=== PATIENT | female | born 1965 | race Caucasian/White ===

== ENCOUNTER 2018-02-19 06:41 | Emergency (ER) | payer SELFPAY ==
--- NOTE | 2018-02-19 07:20 | ED PDOC ---
HPI: Skin/Bite Injury Time Seen by Provider: 02/19/18 07:10 Onset/Duration Of Symptoms: Days (2) Location Of Injury: Right: Arm, Face, Left: Arm Quality Of Symptoms: Itching Severity: Mild Additional Complaint(s): Pt states bitten by bed bugs yestewrday and today on face and arms. Itchy. No fever or draiage Past Medical History - Medical History PMH: No Chronic Diseases - Family History Family History: States: Unknown Family Hx - Home Medications Home Medications: Ambulatory Orders Medication Instructions Recorded Cetirizine HCl [Zyrtec] 10 mg PO DAILY #10 capsule 02/19/18 - Allergies Allergies/Adverse Reactions: Allergies Allergy/AdvReac Type Severity Reaction Status Date / Time No Known Allergies Allergy Verified 02/19/18 07:18 Review of Systems Constitutional: Negative for: Fever Skin: Positive for: Rash Physical Exam - Physical Exam Appears: Positive for: Non-toxic, No Acute Distress Skin: Positive for: Rash (Erythemetous bites on wrists and forearms bilat. Few erythemetous areas on face flat. Non pustular. No macules or papules) Disposition - Clinical Impression Clinical Impression: Insect bites - Patient ED Disposition Is Patient to be Admitted: No Counseled Patient/Family Regarding: Diagnosis, Need For Followup, Rx Given - Disposition Referrals: [facility] [Outside] Disposition: Routine/Home Disposition Time: 07:21 Condition: FAIR Prescriptions: Cetirizine HCl [Zyrtec] 10 mg PO DAILY #10 capsule Instructions: Insect Bites and Stings
[2018-02-19 07:26] VITALS: RESP 17; O2SAT 99
[2018-02-19 08:41] VITALS: BP 128/76; PULSE 75; TEMP 7.8
== END 2018-02-19 08:00 | disposition home or self-care (01) ==
LOC: H.ER 06:41
DX: S40.862A Insect bite (nonvenomous) of left upper arm, initial encounter (principal); W57.XXXA Bitten or stung by nonvenomous insect and other nonvenomous arthropods, initial encounter; Y92.89 Other specified places as the place of occurrence of the external cause